=== PATIENT | female | born 1955 | race African-American/Black ===

== ENCOUNTER 2016-05-12 18:11 | Emergency (ER) | payer OTHER ==
[2016-05-12 18:32] VITALS: BP 139/75; PULSE 78; TEMP 98.1; BMI 23.8
--- NOTE | 2016-05-12 19:52 | PDOC ---
[id number] 4d TOOTHACHE Time Seen by Provider: 05/12/16 19:00 - History of Present Illness Initial Comments: 05/12/16 19:49 CHIEF COMPLAINT: tooth pain HISTORY OF PRESENT ILLNESS: 61 yo F presents to ED with tooth pain. Patient states she has been having tooth discomfort since the beginning of the month but "just got insurance today" and has an appointment on May 20 with her dentist. No recent travel or sick contacts. PAST MEDICAL HISTORY: Denies past medical history FAMILY HISTORY: Denies SOCIAL HISTORY:Denies tobacco, alcohol, illicit drug use. SURGICAL HISTORY: Denies ALLERGIES: No known drug allergies REVIEW OF SYSTEMS General/Constitutional: Denies fever or chills. Denies weakness, weight change. HEENT: Denies change in vision. Denies ear pain or discharge. Denies sore throat. Cardiovascular: Denies chest pain or shortness of breath. Respiratory: Denies cough, wheezing, or hemoptysis. Gastrointestinal: Denies nausea, vomiting, diarrhea or constipation. Denies rectal bleeding. Genitourinary: Denies dysuria, frequency, or change in urination. Musculoskeletal: Denies joint or muscle swelling or pain. Denies neck or back pain. Skin and breasts: Denies rash or easy bruising. Neurologic: Denies headache, vertigo, loss of consciousness, or loss of sensation. PHYSICAL EXAM General Appearance: Well-appearing, appropriately dressed. No apparent distress , no intoxication. HEENT: EOMI, PERRLA, normal ENT inspection, normal voice, TMs normal, pharynx normal. No conjunctival pallor. No photophobia, scleral icterus. Neck: Supple. Trachea midline. No tenderness, rigidity, carotid bruit, stridor , lymphadenopathy, or thyromegaly. Respiratory/Chest: Lungs CTAB. No shortness of breath, chest tenderness, respiratory distress, accessory muscle use. No crackles, rales, rhonchi, stridor , wheezing, dullness Cardiovascular: RRR. S1, S2. No JVD, murmur, bradycardia, tachycardia. Vascular Pulses: Dorsalis-Pedis (R): 2+, Dorsalis-Pedis (L): 2+ Gastrointestinal/Abdominal: Normal bowel sounds. Abdomen soft, non-distended. No tenderness or rebound tenderness. No organomegaly, pulsatile mass, guarding , hernia, hepatomegaly, splenomegaly. Lymphatic: No adenopathy, tenderness. Musculoskeletal/Extremities: Normal inspection. FROM of all extremities, normal capillary refill. Pelvis Stable. No CVA tenderness. No tenderness to extremities, pedal edema, swelling, erythema or deformity. Integumentary: Appropriate color, dry, warm. No cyanosis, erythema, jaundice or rash Neurologic: [employer] II-XII intact. Fully oriented, alert. Appropriate mood/affect. Motor strength 5/5. No appreciable EOM palsy, facial droop or sensory deficit. 05/12/16 19:53 05/20/16 09:13 Past History - Past Medical History Allergies/Adverse Reactions: Allergies Allergy/AdvReac Type Severity Reaction Status Date / Time naproxen Allergy Severe Hives Verified 05/12/16 18:29 Home Medications: Ambulatory Orders Losartan/Hydrochlorothiazide [Losartan-Hctz 100-12.5 mg Tab] 1 each PO ASDIR 07/23 Amox-Tr/K Cl [Augmentin 875-125mg Tablet -] 1 tab PO BID #20 tablet MDD 2 Oxycodone HCl/Acetaminophen [Percocet 5-325 mg Tablet] 1 tab PO Q6H PRN #10 tablet MDD 4 02/20/16 Acetaminophen [Tylenol Extra Strength] 1,000 mg PO Q8H PRN #21 tablet 05/12/16 HTN: Yes - Surgical History Abdominal Surgery: Yes - Immunization History Immunization Up to Date: Yes - Psycho/Social/Smoking Cessation Hx Anxiety: No Suicidal Ideation: No Smoking Status: No Smoking History: Never smoked Have you smoked in the past 12 months: No Number of Cigarettes Smoked Daily: 0 Hx Alcohol Use: No Drug/Substance Use Hx: No Substance Use Type: None *Physical Exam - Vital Signs Last Vital Signs Temp Pulse Resp BP Pulse Ox 98.1 F 78 19 139/75 100 05/12/16 18:30 05/12/16 18:30 05/12/16 18:30 05/12/16 18:30 05/12/16 18:30 Medical Decision Making - Medical Decision Making 05/20/16 09:13 61 yo F presents to ED with tooth pain. Dental block offered, patient refused and states "I don't want a shot." [place] [facility] consulted. Patient has had multiple narcotic rxs from multiple providers within inappropriate time frame. Tylenol offered, patient refused. At this time patient appears to be drug seeking. Tylenol script sent to pharm. Advised patient to take medication as prescribed and f/u with dentist. Advised patient of signs and symptoms for return to ER. Patient verbalized understanding and agrees to plan. *DC/Admit/Observation/Transfer Diagnosis at time of Disposition: Tooth pain - Discharge Dispostion Disposition: HOME Condition at time of disposition: Stable Admit: No - Prescriptions Prescriptions: Acetaminophen [Tylenol Extra Strength] 1,000 mg PO Q8H PRN #21 tablet PRN Reason: Pain - Referrals Referrals: Juarez Maynard MD [Primary Care Provider] - - Patient Instructions Printed Discharge Instructions: DI for Dental Pain Additional Instructions: Please take medications as prescribed and follow up with your dentist next week. If you experience any headache, fever, nausea, vomiting, diarrhea, pain behind your jaw or ear, or any new or worsening symptoms, please return to the ER.
== END 2016-05-12 20:25 | disposition home or self-care (01) ==
LOC: JERFT 18:11
DX: K08.89 Other specified disorders of teeth and supporting structures (principal); I10 Essential (primary) hypertension
CPT/HCPCS: 99281-25

== ENCOUNTER 2016-06-30 14:56 | Emergency (ER) | payer OTHER ==
[2016-06-30 15:01] VITALS: BP 152/96; PULSE 78; TEMP 98.1; BMI 24.1
--- NOTE | 2016-06-30 15:14 | PDOC ---
[id number] No Limitations - History of Present Illness Initial Comments: 06/30/16 15:32 61 yr female with c/o toothache to right lower jaw for 1 month. Pt states she has no insurance currently to see her dentist but is workiing on getting it re- instated. pt denies fever, no sore throat. Severity: mild Associated Symptoms: reports: denies symptoms <Enrrique Watsonelle - Last Filed: 06/30/16 15:57> - General History Source: Patient Exam Limitations: No Limitations - History of Present Illness Timing/Duration: unsure <Melodie Munguia - Last Filed: 06/30/16 16:34> - General Chief Complaint: Toothache Stated Complaint: TOOTHACHE Time Seen by Provider: 06/30/16 14:59 Past History - Past Medical History Other medical history: herniated discs on tramadol <WalterIvanna - Last Filed: 06/30/16 15:57> - Past Medical History HTN: Yes - Surgical History Abdominal Surgery: Yes - Immunization History Immunization Up to Date: Yes - Psycho/Social/Smoking Cessation Hx Anxiety: No Suicidal Ideation: No Smoking Status: No Smoking History: Never smoked Have you smoked in the past 12 months: No Number of Cigarettes Smoked Daily: 0 Information on smoking cessation initiated: No Hx Alcohol Use: No Drug/Substance Use Hx: No Substance Use Type: None <Melodie Munguia - Last Filed: 06/30/16 16:34> - Past Medical History Allergies/Adverse Reactions: Allergies Allergy/AdvReac Type Severity Reaction Status Date / Time naproxen Allergy Severe Hives Verified 06/30/16 15:01 Home Medications: Ambulatory Orders Losartan/Hydrochlorothiazide [Losartan-Hctz 100-12.5 mg Tab] 1 each PO ASDIR 07/23 Penicillin V Potassium [Pen Vee K -] 500 mg PO QID #28 tablet 06/30/16 *Physical Exam - Vital Signs Last Vital Signs Temp Pulse Resp BP Pulse Ox 98.1 F 78 18 152/96 100 06/30/16 14:59 06/30/16 14:59 06/30/16 14:59 06/30/16 14:59 06/30/16 14:59 - Physical Exam General Appearance: Yes: Nourished, Appropriately Dressed HEENT: positive: EOMI, BRO, TMs Normal, Pharynx Normal, Other (right lower tooth number 28 with tenderness around the gum,, redness noted no abscess, multiple missing teeth , no lesions in buccal mucosa) <Ivanna Watson - Last Filed: 06/30/16 15:57> - Vital Signs Last Vital Signs Temp Pulse Resp BP Pulse Ox 98.1 F 78 18 152/96 100 06/30/16 14:59 06/30/16 14:59 06/30/16 14:59 06/30/16 14:59 06/30/16 14:59 <Melodie Munguia - Last Filed: 06/30/16 16:34> Medical Decision Making - Medical Decision Making 06/30/16 16:01 cc: toothache for one month I will prescribe penvk for 7 days pt has a dentist states she can't afford to go Pt refused information for dental clinic at [facility] or at [facility] pt states "I don't see dental students" pt has history of chronic herniated discs on tramadol (multiple prescriptions filled per [facility] I-stop ) I have offered toradol , pt refused states she is allergic to naprosyn and toradol does not work pt refused xtra strength tylenol <Ivanna Watson - Last Filed: 06/30/16 15:57> *DC/Admit/Observation/Transfer <Ivanna Watson - Last Filed: 06/30/16 15:57> <Melodie Munguia - Last Filed: 06/30/16 16:34> Diagnosis at time of Disposition: Tooth pain - Discharge Dispostion Disposition: HOME Condition at time of disposition: Good - Prescriptions Prescriptions: Penicillin V Potassium [Pen Vee K -] 500 mg PO QID #28 tablet - Referrals Referrals: Juarez Maynard MD [Primary Care Provider] - - Patient Instructions Additional Instructions: follow up with your dentist gargle with warm salt water 4-5 times a day take the PenvK antibiotic for 7 days return if any worsening pain or fever take your tramadol as prescribed if that is not helping your pain you must let your dentist know or your pain management doctor
== END 2016-06-30 15:41 | disposition home or self-care (01) ==
LOC: JERFT 14:56
DX: K08.89 Other specified disorders of teeth and supporting structures (principal); I10 Essential (primary) hypertension
CPT/HCPCS: 99281-25

== ENCOUNTER 2019-01-05 13:51 | Emergency (ER) | payer OTHER ==
[2019-01-05 14:05] VITALS: BP 129/69; PULSE 75; TEMP 98.2; BMI 22.8
--- NOTE | 2019-01-05 14:43 | PDOC ---
History of Present Illness - General Chief Complaint: Pain Stated Complaint: MUSCLE PAIN Time Seen by Provider: 01/05/19 14:33 - History of Present Illness Initial Comments: 01/05/19 14:40 63 y/o F w/HTN presents for evaluation of atraumatic onset of R sided mid back pain which occured while getting out of a chair today. As well as R wrist pain again atraumatic x3 days. No systemic symptoms. Past History - Past Medical History Allergies/Adverse Reactions: Allergies Allergy/AdvReac Type Severity Reaction Status Date / Time naproxen Allergy Severe Hives Verified 01/05/19 14:05 Home Medications: Ambulatory Orders Losartan/Hydrochlorothiazide [Losartan-Hctz 100-12.5 mg Tab] 1 each PO ASDIR 07/23 Penicillin V Potassium [Pen Vee K -] 500 mg PO QID #28 tablet 06/30/16 Cyclobenzaprine HCl [Flexeril 10 mg] 10 mg PO HS PRN #10 tablet 01/05/19 COPD: No HTN: Yes - Surgical History Abdominal Surgery: Yes - Immunization History Immunization Up to Date: Yes - Psycho Social/Smoking Cessation Hx Smoking Status: No Smoking History: Never smoked Have you smoked in the past 12 months: No Number of Cigarettes Smoked Daily: 0 Hx Alcohol Use: No Drug/Substance Use Hx: No Substance Use Type: None Review of Systems - Review of Systems Constitutional: No: Fever Musculoskeletal: Yes: Back Pain, Joint Pain *Physical Exam - Vital Signs Last Vital Signs Temp Pulse Resp BP Pulse Ox 98.2 F 75 18 129/69 99 01/05/19 14:03 01/05/19 14:03 01/05/19 14:03 01/05/19 14:03 01/05/19 14:03 - Physical Exam Comments: 01/05/19 14:41 R wrist skin color and temperature are normal, there is full non painful ROM. Tenderness about the the CMCJ. Negative Finkelsteins Test and negative Median nerve compression test. No gross sensory or motor deficits NIVD HEAD: NC/AT EYES: Conjuntiva clear NOSE: No d/c NECK: Supple without adenopathy CARDIAC: S1 S2 LUNGS: CTA Full and Equal breath sounds; There is R sided rib tenderness and para thorasic muscular tenderness about the ribs 8 and 9 ABDOMEN: Soft NT ND MS: Full ROM in all joints without edema NEUROLOGIC: No gross sensory or motor deficits, NVID SKIN: Normal color and temperature no lesions or rashes 01/05/19 14:43 ED Treatment Course - RADIOLOGY Radiology Studies Ordered: Category Date Time Status CHEST PA & LAT [RAD] Stat Radiology 01/05/19 14:39 Ordered RIBS RIGHT SIDE [RAD] Stat Radiology 01/05/19 14:39 Ordered Medical Decision Making - Medical Decision Making 01/05/19 15:30 CXR and Rib series negative, back strain CMCJ OA Will have pt f/u with hand and PCP Discharge - Discharge Information Problems reviewed: Yes Clinical Impression/Diagnosis: CMC arthritis, Upper back strain Condition: Stable Disposition: HOME - Admission No - Follow up/Referral Referrals: David Yan PA [Primary Care Provider] - - Patient Discharge Instructions Additional Instructions: Return to the emergency room for worsening symptoms. Please follow up with both hand surgery for further evaluation and treatment options of you R hand pain. ANd follow up with your primary care provider for further evaluation and treatment options for your back pain. You should follow up without fail within the next 3-4 days. Please take the muscle relaxer as directed 1 tablet before bed, this will make you sleepy. You may also take Tylenol as directed for addition pain control. - Post Discharge Activity
== END 2019-01-05 15:48 | disposition home or self-care (01) ==
LOC: JERFT 13:51
DX: S29.012A Strain of muscle and tendon of back wall of thorax, initial encounter (principal); M19.049 Primary osteoarthritis, unspecified hand; I10 Essential (primary) hypertension; Z88.6 Allergy status to analgesic agent; X50.9XXA Other and unspecified overexertion or strenuous movements or postures, initial encounter; Y93.89 Activity, other specified; Y92.89 Other specified places as the place of occurrence of the external cause; Y99.8 Other external cause status
CPT/HCPCS: 71046-TC-FY; 71101-TC-RT-FY; 99281-25